=== PATIENT | male | born 1975 ===

== ENCOUNTER 2022-04-21 12:33 | Inpatient (IN) ==
[2022-04-21] MEDS ORDERED: MAGNESIUM SULF RIDER 2 GM/50 ML PREMIX IV PRN (14:27)
[2022-04-21] MEDS ORDERED: MAGNESIUM SULF RIDER 4 GM/100 ML PREMIX IV PRN (14:27)
[2022-04-21] MEDS ORDERED: SODIUM CHLORIDE 0.9% 1,000 ML IV ONE (14:27)
[2022-04-21] MEDS ORDERED: SODIUM PHOSPHATE INJ 15 MMOL in SODIUM CHLORIDE 0.9% 250 ML IV PRN (14:27)
[2022-04-21 14:54] LABS: Arterial Base Excess iSTAT -14 MMOL/L (-2.5-2.5); Arterial Bicarbonate iSTAT 10.5 MMOL/L (20-26); Arterial O2 Saturation iSTAT 98 % (95-100); Arterial PCO2 iSTAT 21 MM HG (35-48); Arterial PO2 iSTAT 108 MM HG (80-95); Arterial Total CO2 iSTAT 11 MMO/L (23-27); Arterial pH iSTAT 7.311 (7.35-7.45)
[2022-04-21] MEDS ORDERED: DEXTROSE 10% 250 ML BAG IV PRN ×2 (15:04)
[2022-04-21 15:19] LABS: Basophils # 0.1 10*3/uL (0.0-0.2); Basophils % 0.4 % (0.0-0.8); Eosinophils % 0.2 % (0.00-10.9); Hematocrit 42.3 VOL% (42.0-52.0); Hemoglobin 14.3 GM/DL (14.0-18.0); Immature Granulocytes % 1.2 %; Immature Granulocytes Absolute 0.22 #; Lymphocytes # 2.3 10*3/uL (1.4-4.0); Lymphocytes % 12.6 % (21.2-54.2); Mean Corpuscular HGB Conc 33.8 GM/DL (32-36); Mean Corpuscular Volume 94.8 FL (87-102); Mean Platelet Volume 11.3 FL (9.6-12.0); Monocytes # 1.8 10*3/uL (0.11-0.8); Monocytes % 9.9 % (1.7-12.7); Neutrophils % 75.7 % (38.7-73.9); Platelet Count 207 T/CUMM (130-400); Red Blood Count 4.46 MC/CUMM (3.8-5.5); Red Cell Distribution Width 13.5 % (9.3-17.3); White Blood Count 18.2 T/CUMM (4-12)
[2022-04-21 15:39] LABS: Albumin 2.7 G/DL (3.4-5.0); Bilirubin,Total 0.8 MG/DL (0.20-1.00); Calcium 8.6 MG/DL (8.5-10.1); Risk Ratio 4.79; Total Protein 7.8 G/DL (6.4-8.2); VLDL Cholesterol 37.6 MG/DL
[2022-04-21 15:40] LABS: Calcium 8.3 MG/DL (8.5-10.1); Osmolality,Calculated 287.1 MOS/KG (273-304); Potassium 4.1 MMOL/L (3.5-5.1)
[2022-04-21 15:57] LABS: Bacteria,Urine Occasional /HPF (Few); Hyaline Casts,Urine 87 /LPF (0-3); Mucus,Urine Occasional /LPF (Occasional); RBC,Urine 31 /HPF (0-4); Squamous Epithelial Cell,Urine Occasional /HPF (0-10)
[2022-04-21 15:58] LABS: Urine Appearance Clear (Clear); Urine Color Yellow (Yellow); Urine pH 5.5 (4.5-8.0)
[2022-04-21 15:59] LABS: Bilirubin,Urine Negative (Negative); Blood, Urine Small mg/dL (Negative); Glucose,Urine (UA) 500 mg/dL (Negative); Ketones,Urine >=160 mg/dL (Negative); Nitrite,Urine Negative (Negative); Protein,Urine 30 mg/dL (Negative); Urine Specific Gravity 1.025 (1.001-1.035); Urine Urobilinogen < 2.0 eU/dL (<2.0)
[2022-04-21] MEDS: INSULIN REGULAR DRIP 100 ML IV SCH ×2 (16:12→23:03)
[2022-04-21] MEDS: SODIUM CHLORIDE 0.9% 1,000 ML IV SCH ×2 (16:13→18:09)
[2022-04-21] MEDS ORDERED: hydrALAZINE 20 MG/1 ML VIAL IV PRN (16:53)
[2022-04-21] MEDS: LOSARTAN 25 MG TABLET PO SCH (17:37)
[2022-04-21 18:42] LABS: Osmolality,Calculated 284.5 MOS/KG (273-304); Potassium 3.3 MMOL/L (3.5-5.1)
[2022-04-21] MEDS ORDERED: DEXTROSE 5% NACL 0.45% 1,000 ML IV SCH (19:15)
[2022-04-21] MEDS ORDERED: SODIUM CHLORIDE 0.9% 1,000 ML IV SCH (19:30)
[2022-04-21] MEDS: POTASSIUM CHLORIDE RIDER 10 MEQ/100 ML PREMIX IV PRN ×4 (19:42→22:54)
[2022-04-21] MEDS: ENOXAPARIN 40 MG/0.4 ML SYRINGE SUBCUT SCH (21:07)
[2022-04-21] MEDS: PIPERACILLIN/TAZOBACTAM 3,375 MG in SODIUM CHLORIDE 0.9% 100 ML IV SCH (21:52)
[2022-04-21 22:40] LABS: Calcium 7.7 MG/DL (8.5-10.1); Osmolality,Calculated 281.4 MOS/KG (273-304); Potassium 3.1 MMOL/L (3.5-5.1)
[2022-04-21] MEDS ORDERED: POTASSIUM CHLORIDE 20 MEQ TABLET PO ONE (23:30)
[2022-04-21] MEDS: DEXTROSE 5% NACL 0.45% 1,000 ML IV SCH (23:51)
[2022-04-22] MEDS: POTASSIUM CHLORIDE 20 MEQ TABLET PO PRN ×4 (00:35→06:21)
[2022-04-22 03:10] LABS: Calcium 7.5 MG/DL (8.5-10.1); Osmolality,Calculated 278.5 MOS/KG (273-304); Potassium 3.1 MMOL/L (3.5-5.1)
[2022-04-22 03:30] LABS: Basophils # 0.1 10*3/uL (0.0-0.2); Basophils % 0.6 % (0.0-0.8); Eosinophils # 0.2 10*3/uL (0.0-0.87); Eosinophils % 1.3 % (0.00-10.9); Hematocrit 35.1 VOL% (42.0-52.0); Immature Granulocytes Absolute 0.13 #; Lymphocytes # 3.2 10*3/uL (1.4-4.0); Lymphocytes % 25.6 % (21.2-54.2); Mean Corpuscular HGB Conc 33.6 GM/DL (32-36); Mean Corpuscular Volume 94.9 FL (87-102); Monocytes # 0.9 10*3/uL (0.11-0.8); Monocytes % 7.5 % (1.7-12.7); Platelet Count 165 T/CUMM (130-400); Red Cell Distribution Width 13.4 % (9.3-17.3); White Blood Count 12.6 T/CUMM (4-12)
[2022-04-22 03:40] LABS: Hemoglobin 11.8 GM/DL (14.0-18.0)
[2022-04-22 03:52] LABS: Bilirubin,Total 0.6 MG/DL (0.20-1.00); Calcium 7.5 MG/DL (8.5-10.1); Osmolality,Calculated 275.5 MOS/KG (273-304); Phosphorous 1.1 MG/DL (2.5-4.9); Potassium 3.4 MMOL/L (3.5-5.1)
[2022-04-22] MEDS: DEXTROSE 5% NACL 0.45% 1,000 ML IV SCH (03:55)
[2022-04-22] MEDS ORDERED: DEXTROSE 50% 25 GM/50 ML SYRINGE IV ONE (04:19)
[2022-04-22] MEDS ORDERED: DEXTROSE 50% 25 GM/50 ML SYRINGE IV PRN (04:27)
[2022-04-22] MEDS ORDERED: DEXTROSE 10% 250 ML BAG IV PRN ×2 (04:28→04:30)
[2022-04-22] MEDS: PIPERACILLIN/TAZOBACTAM 3,375 MG in SODIUM CHLORIDE 0.9% 100 ML IV SCH (06:12)
[2022-04-22] MEDS: LEVOTHYROXINE 150 MCG TABLET PO SCH (06:21)
[2022-04-22 07:03] LABS: Calcium 7.7 MG/DL (8.5-10.1); Osmolality,Calculated 279.5 MOS/KG (273-304); Potassium 3.5 MMOL/L (3.5-5.1)
[2022-04-22] MEDS ORDERED: SODIUM CHLORIDE 0.45% 1,000 ML IV SCH (07:30)
[2022-04-22] MEDS ORDERED: INSULIN GLARGINE 100 UNIT/ML SUBCUT ONE (07:57)
[2022-04-22] MEDS ORDERED: INSULIN LISPRO 100 UNIT/ML SUBCUT SCH (08:00)
[2022-04-22] MEDS ORDERED: POTASSIUM PHOSPHATE 30 MMOL in SODIUM CHLORIDE 0.9% 250 ML IV ONE (08:10)
[2022-04-22] MEDS: SODIUM HYPOCHLORITE 0.25% IRRIG 473 ML BOTTLE TOP SCH (08:21)
[2022-04-22] MEDS: LOSARTAN 25 MG TABLET PO SCH (08:21)
[2022-04-22] MEDS: DAPAGLIFLOZIN 5 MG TABLET PO SCH (09:36)
[2022-04-22 11:52] LABS: Calcium 7.5 MG/DL (8.5-10.1); Potassium 3.9 MMOL/L (3.5-5.1)
[2022-04-22] MEDS: INSULIN LISPRO 100 UNIT/ML SUBCUT SCH ×3 (11:56→20:19)
[2022-04-22] MEDS ORDERED: cefTRIAXone 1,000 MG in SODIUM CHLORIDE 0.9% 100 ML IV SCH (12:00)
[2022-04-22] MEDS: VANCOMYCIN INJ 2,000 MG in SODIUM CHLORIDE 0.9% 500 ML IV SCH (12:15)
[2022-04-22] MEDS: metFORMIN 500 MG TABLET PO SCH (16:46)
[2022-04-22] MEDS: ENOXAPARIN 40 MG/0.4 ML SYRINGE SUBCUT SCH (20:19)
[2022-04-22] MEDS: ATORVASTATIN 40 MG TABLET PO SCH (20:19)
[2022-04-22] MEDS: ACETAMINOPHEN 325 MG/10.15 ML UDCUP PO PRN (20:20)
[2022-04-22] MEDS ORDERED: DOCUSATE SODIUM 100 MG CAPSULE PO PRN (23:11)
[2022-04-23] MEDS: VANCOMYCIN INJ 2,000 MG in SODIUM CHLORIDE 0.9% 500 ML IV SCH ×2 (00:06→12:08)
[2022-04-23] MEDS: LEVOTHYROXINE 150 MCG TABLET PO SCH (06:08)
[2022-04-23 06:28] LABS: Basophils # 0.1 10*3/uL (0.0-0.2); Basophils % 0.7 % (0.0-0.8); Eosinophils # 0.2 10*3/uL (0.0-0.87); Eosinophils % 1.7 % (0.00-10.9); Hematocrit 39.2 VOL% (42.0-52.0); Hemoglobin 13.1 GM/DL (14.0-18.0); Immature Granulocytes % 1.6 %; Immature Granulocytes Absolute 0.16 #; Lymphocytes # 2.5 10*3/uL (1.4-4.0); Lymphocytes % 24.6 % (21.2-54.2); Mean Corpuscular HGB Conc 33.4 GM/DL (32-36); Mean Corpuscular Volume 95.4 FL (87-102); Mean Platelet Volume 10.9 FL (9.6-12.0); Monocytes # 0.7 10*3/uL (0.11-0.8); Monocytes % 7.4 % (1.7-12.7); Platelet Count 180 T/CUMM (130-400); Red Blood Count 4.11 MC/CUMM (3.8-5.5); Red Cell Distribution Width 13.5 % (9.3-17.3)
[2022-04-23 07:08] LABS: Osmolality,Calculated 290.8 MOS/KG (273-304); Phosphorous 2.8 MG/DL (2.5-4.9); Potassium 3.5 MMOL/L (3.5-5.1)
[2022-04-23] MEDS: INSULIN LISPRO 100 UNIT/ML SUBCUT SCH ×4 (08:41→21:32)
[2022-04-23] MEDS: SODIUM HYPOCHLORITE 0.25% IRRIG 473 ML BOTTLE TOP SCH (08:42)
[2022-04-23] MEDS: DAPAGLIFLOZIN 5 MG TABLET PO SCH (08:42)
[2022-04-23] MEDS: metFORMIN 500 MG TABLET PO SCH ×2 (08:42→16:17)
[2022-04-23] MEDS: LOSARTAN 25 MG TABLET PO SCH (08:42)
[2022-04-23] MEDS: POTASSIUM CHLORIDE 20 MEQ TABLET PO PRN ×2 (08:54→12:17)
[2022-04-23] MEDS ORDERED: INSULIN GLARGINE 100 UNIT/ML SUBCUT SCH (09:00)
[2022-04-23] MEDS ORDERED: INSULIN GLARGINE 100 UNIT/ML SUBCUT ONE (11:32)
[2022-04-23] MEDS: ACETAMINOPHEN 325 MG/10.15 ML UDCUP PO PRN (12:17)
[2022-04-23] MEDS: ATORVASTATIN 40 MG TABLET PO SCH (21:12)
[2022-04-23] MEDS: ENOXAPARIN 40 MG/0.4 ML SYRINGE SUBCUT SCH (21:13)
[2022-04-24] MEDS: ACETAMINOPHEN 325 MG/10.15 ML UDCUP PO PRN (01:07)
[2022-04-24] MEDS ORDERED: MORPHINE 2 MG/1 ML SYRINGE IV ONE (01:45)
[2022-04-24] MEDS: VANCOMYCIN INJ 2,000 MG in SODIUM CHLORIDE 0.9% 500 ML IV SCH ×2 (01:45→13:50)
[2022-04-24] MEDS: LEVOTHYROXINE 150 MCG TABLET PO SCH (05:58)
[2022-04-24 08:55] LABS: Basophils # 0.1 10*3/uL (0.0-0.2); Basophils % 0.9 % (0.0-0.8); Eosinophils # 0.2 10*3/uL (0.0-0.87); Eosinophils % 1.5 % (0.00-10.9); Hematocrit 36.2 VOL% (42.0-52.0); Hemoglobin 12.2 GM/DL (14.0-18.0); Immature Granulocytes % 2.9 %; Immature Granulocytes Absolute 0.28 #; Lymphocytes # 2.6 10*3/uL (1.4-4.0); Lymphocytes % 26.2 % (21.2-54.2); Mean Corpuscular HGB Conc 33.7 GM/DL (32-36); Mean Corpuscular Volume 94.5 FL (87-102); Mean Platelet Volume 10.6 FL (9.6-12.0); Monocytes # 0.8 10*3/uL (0.11-0.8); Monocytes % 7.7 % (1.7-12.7); Neutrophils % 60.8 % (38.7-73.9); Platelet Count 185 T/CUMM (130-400); Red Blood Count 3.83 MC/CUMM (3.8-5.5); Red Cell Distribution Width 13.9 % (9.3-17.3); White Blood Count 9.8 T/CUMM (4-12)
[2022-04-24 09:20] LABS: Calcium 7.9 MG/DL (8.5-10.1); Osmolality,Calculated 283.4 MOS/KG (273-304); Potassium 3.4 MMOL/L (3.5-5.1)
[2022-04-24] MEDS ORDERED: POTASSIUM CHLORIDE 20 MEQ TABLET PO ONE (11:00)
[2022-04-24] MEDS: INSULIN LISPRO 100 UNIT/ML SUBCUT SCH ×4 (11:04→20:26)
[2022-04-24] MEDS: DAPAGLIFLOZIN 5 MG TABLET PO SCH (11:05)
[2022-04-24] MEDS: INSULIN GLARGINE 100 UNIT/ML SUBCUT SCH (11:05)
[2022-04-24] MEDS: metFORMIN 500 MG TABLET PO SCH ×2 (11:05→17:24)
[2022-04-24] MEDS: SODIUM HYPOCHLORITE 0.25% IRRIG 473 ML BOTTLE TOP SCH (11:05)
[2022-04-24] MEDS: LOSARTAN 25 MG TABLET PO SCH (11:05)
[2022-04-24] MEDS: ATORVASTATIN 40 MG TABLET PO SCH (20:25)
[2022-04-24] MEDS: ENOXAPARIN 40 MG/0.4 ML SYRINGE SUBCUT SCH (20:25)
[2022-04-25] MEDS: VANCOMYCIN INJ 2,000 MG in SODIUM CHLORIDE 0.9% 500 ML IV SCH ×2 (01:02→13:04)
[2022-04-25] MEDS: LEVOTHYROXINE 150 MCG TABLET PO SCH (05:04)
[2022-04-25 06:20] LABS: Basophils # 0.1 10*3/uL (0.0-0.2); Basophils % 0.9 % (0.0-0.8); Eosinophils # 0.2 10*3/uL (0.0-0.87); Eosinophils % 1.6 % (0.00-10.9); Hematocrit 37.2 VOL% (42.0-52.0); Hemoglobin 12.7 GM/DL (14.0-18.0); Immature Granulocytes % 4.3 %; Immature Granulocytes Absolute 0.42 #; Lymphocytes % 30.1 % (21.2-54.2); Mean Corpuscular HGB Conc 34.1 GM/DL (32-36); Mean Corpuscular Volume 92.5 FL (87-102); Mean Platelet Volume 10.1 FL (9.6-12.0); Monocytes # 0.8 10*3/uL (0.11-0.8); Monocytes % 8.2 % (1.7-12.7); Neutrophils % 54.9 % (38.7-73.9); Platelet Count 202 T/CUMM (130-400); Red Blood Count 4.02 MC/CUMM (3.8-5.5); Red Cell Distribution Width 13.5 % (9.3-17.3); White Blood Count 9.8 T/CUMM (4-12)
[2022-04-25 06:34] LABS: Calcium 7.9 MG/DL (8.5-10.1); Osmolality,Calculated 278.4 MOS/KG (273-304); Potassium 3.2 MMOL/L (3.5-5.1)
[2022-04-25] MEDS: INSULIN LISPRO 100 UNIT/ML SUBCUT SCH ×4 (07:33→20:45)
[2022-04-25] MEDS ORDERED: POTASSIUM CHLORIDE 20 MEQ TABLET PO ONE (08:10)
[2022-04-25] MEDS ORDERED: INSULIN GLARGINE 100 UNIT/ML SUBCUT SCH (09:00)
[2022-04-25] MEDS: SODIUM HYPOCHLORITE 0.25% IRRIG 473 ML BOTTLE TOP SCH (09:41)
[2022-04-25] MEDS: metFORMIN 500 MG TABLET PO SCH ×2 (09:41→16:50)
[2022-04-25] MEDS: INSULIN GLARGINE 100 UNIT/ML SUBCUT SCH (09:41)
[2022-04-25] MEDS: DAPAGLIFLOZIN 5 MG TABLET PO SCH (09:41)
[2022-04-25] MEDS: LOSARTAN 25 MG TABLET PO SCH (09:41)
[2022-04-25] MEDS: ATORVASTATIN 40 MG TABLET PO SCH (20:45)
[2022-04-25] MEDS: ENOXAPARIN 40 MG/0.4 ML SYRINGE SUBCUT SCH (20:46)
[2022-04-26] MEDS: VANCOMYCIN INJ 2,000 MG in SODIUM CHLORIDE 0.9% 500 ML IV SCH ×2 (00:59→13:55)
[2022-04-26] MEDS: LEVOTHYROXINE 150 MCG TABLET PO SCH (05:04)
[2022-04-26 06:41] LABS: Basophils # 0.1 10*3/uL (0.0-0.2); Basophils % 0.8 % (0.0-0.8); Eosinophils # 0.2 10*3/uL (0.0-0.87); Eosinophils % 1.3 % (0.00-10.9); Hematocrit 36.6 VOL% (42.0-52.0); Hemoglobin 12.6 GM/DL (14.0-18.0); Immature Granulocytes Absolute 0.48 #; Lymphocytes # 3.4 10*3/uL (1.4-4.0); Lymphocytes % 28.1 % (21.2-54.2); Mean Corpuscular HGB Conc 34.4 GM/DL (32-36); Mean Corpuscular Volume 91.7 FL (87-102); Mean Platelet Volume 10.2 FL (9.6-12.0); Monocytes # 0.9 10*3/uL (0.11-0.8); Monocytes % 7.6 % (1.7-12.7); Neutrophils % 58.2 % (38.7-73.9); Platelet Count 217 T/CUMM (130-400); Red Blood Count 3.99 MC/CUMM (3.8-5.5); Red Cell Distribution Width 13.4 % (9.3-17.3); White Blood Count 11.9 T/CUMM (4-12)
[2022-04-26 06:58] LABS: Calcium 8.1 MG/DL (8.5-10.1); Osmolality,Calculated 276.5 MOS/KG (273-304); Potassium 3.1 MMOL/L (3.5-5.1)
[2022-04-26] MEDS: INSULIN LISPRO 100 UNIT/ML SUBCUT SCH ×4 (07:34→20:35)
[2022-04-26] MEDS ORDERED: MAGNESIUM SULF RIDER 2 GM/50 ML PREMIX IV ONE (09:00)
[2022-04-26] MEDS ORDERED: POTASSIUM CHLORIDE 20 MEQ TABLET PO ONE (09:00)
[2022-04-26] MEDS: DAPAGLIFLOZIN 5 MG TABLET PO SCH (10:14)
[2022-04-26] MEDS: LOSARTAN 25 MG TABLET PO SCH (10:14)
[2022-04-26] MEDS: INSULIN GLARGINE 100 UNIT/ML SUBCUT SCH (10:17)
[2022-04-26] MEDS: metFORMIN 500 MG TABLET PO SCH ×2 (10:28→17:16)
[2022-04-26] MEDS: SODIUM HYPOCHLORITE 0.25% IRRIG 473 ML BOTTLE TOP SCH (12:30)
[2022-04-26] MEDS: ENOXAPARIN 40 MG/0.4 ML SYRINGE SUBCUT SCH (20:36)
[2022-04-27] MEDS: VANCOMYCIN INJ 2,000 MG in SODIUM CHLORIDE 0.9% 500 ML IV SCH (00:20)
[2022-04-27] MEDS: LEVOTHYROXINE 150 MCG TABLET PO SCH (05:40)
[2022-04-27 05:54] LABS: Basophils # 0.1 10*3/uL (0.0-0.2); Basophils % 0.9 % (0.0-0.8); Eosinophils # 0.2 10*3/uL (0.0-0.87); Eosinophils % 1.5 % (0.00-10.9); Hematocrit 37.6 VOL% (42.0-52.0); Hemoglobin 12.8 GM/DL (14.0-18.0); Immature Granulocytes % 5.5 %; Immature Granulocytes Absolute 0.67 #; Lymphocytes # 3.3 10*3/uL (1.4-4.0); Lymphocytes % 26.7 % (21.2-54.2); Mean Corpuscular Volume 93.1 FL (87-102); Mean Platelet Volume 9.7 FL (9.6-12.0); Monocytes % 7.7 % (1.7-12.7); Neutrophils % 57.7 % (38.7-73.9); Platelet Count 212 T/CUMM (130-400); Red Blood Count 4.04 MC/CUMM (3.8-5.5); Red Cell Distribution Width 13.5 % (9.3-17.3); White Blood Count 12.3 T/CUMM (4-12)
[2022-04-27 06:21] LABS: Calcium 8.3 MG/DL (8.5-10.1); Osmolality,Calculated 277.5 MOS/KG (273-304); Potassium 3.3 MMOL/L (3.5-5.1)
[2022-04-27 06:37] LABS: Eosinophils 2 % (0-10); Lymphocytes 20 % (20-55); Platelet Estimate Adequate; Total Cells Counted 100
[2022-04-27] MEDS: INSULIN LISPRO 100 UNIT/ML SUBCUT SCH (07:57)
[2022-04-27] MEDS ORDERED: POTASSIUM CHLORIDE 20 MEQ TABLET PO SCH (09:00)
[2022-04-27] MEDS: INSULIN GLARGINE 100 UNIT/ML SUBCUT SCH (10:01)
[2022-04-27] MEDS: LOSARTAN 25 MG TABLET PO SCH (10:02)
[2022-04-27] MEDS: metFORMIN 500 MG TABLET PO SCH (10:02)
[2022-04-27] MEDS: DAPAGLIFLOZIN 5 MG TABLET PO SCH (10:02)
[2022-04-27] MEDS: SODIUM HYPOCHLORITE 0.25% IRRIG 473 ML BOTTLE TOP SCH (10:03)
[2022-04-27 12:17] VITALS: BP 104/66
== END 2022-04-27 12:45 | disposition home or self-care (01) | DRG 638 ==
LOC: N.CC 14:11 → SUATTDRO 14:11 → N.5E 04-23 13:49
PROVIDERS: ADMIT Family Medicine; ATTEND Internal Medicine